=== PATIENT | male | born 1960 | race Caucasian/White ===

== ENCOUNTER 2017-04-17 14:52 | Emergency (ER) | payer OTHER ==
[~2017-04-17] VITALS: Ht 180.3 cm; Wt 86.2 kg
[2017-04-17] MEDS ORDERED: Tetanus/Diptheria/Pertussis Vaccine 0.5ml Syr IM ONE (15:15)
--- NOTE | 2017-04-17 15:50 | Emergency Room Report ---
History of Present Illness General Chief Complaint: Multiple Trauma/Fall Source: Patient, Family Member, EMS Present Illness HPI 57YOM BIBEMS after 5x falls in last 24 hours Did meth, GHB, ?chloroform last night. Also took 2x trazodone with wine and ? other pill to help him sleep Fell in kitchen last night, then went back to bed. Fell at [employer]. Refused EMS. Fell again at home Had profuse vomiting No AMS per Total of 5x falls today per . Takes ASA daily "before working out." Not on other AC. Denies other medical problems. Allergies: Coded Allergies: No Known Allergies (Unverified , 04/17/17) Patient History Past Medical History: none Past Surgical History: none Pertinent Family History: none Social History: Reports: drug use Immunizations: UTD Reviewed Nursing Documentation: PMH: Agreed, PSxH: Agreed Nursing Documentation-PMH Past Medical History: No Stated History Review of Systems All Other Systems: negative except mentioned in HPI Physical Exam Vital Signs Date Time Temp Pulse Resp B/P (MAP) Pulse Ox O2 Delivery O2 Flow Rate FiO2 04/17/17 14:44 70 20 151/83 99 Room Air Sp02 EP Interpretation: reviewed, normal General Appearance: normal inspection, well appearing, no apparent distress, alert Head: other - Nasal bridge abrasion. 2x bruise to right forehead, 1-2cm each Eyes: bilateral eye PERRL, bilateral eye EOMI ENT: normal ENT inspection Neck: normal inspection, full range of motion, supple, no bony tend Respiratory: normal inspection, lungs clear, normal breath sounds, no respiratory distress, no retraction, no wheezing Cardiovascular #1: regular rate, rhythm, no edema Gastrointestinal: normal inspection, normal bowel sounds, non tender, soft, no guarding, no hernia Genitourinary: no CVA tenderness Musculoskeletal: normal inspection, back normal, normal range of motion, Eloise' s Sign negative Neurologic: normal inspection, alert, oriented x3, responsive, 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 nml as tested, motor strength/tone normal, speech normal Psychiatric: normal inspection, judgement/insight normal, mood/affect normal Skin: normal inspection, normal color, no rash Procedures Critical Care Time Critical Care Time 30 minutes for this head trauma patient on ASA with multiple falls Found to have subdural with midline shift No AMS GCS 15 CC time includes d/w radiologist, ordering of meds - keppra, mannitol, hydralazine to lower BP, discussion with Neurosurgery at [facility], arrange of transport to [facility] Medical Decision Making Diagnostic Impression: Primary Impression: Fall Qualified Codes: W19.XXXA - Unspecified fall, initial encounter Additional Impressions: Subdural bleeding Midline shift of brain ER Course 56YOM with left subdural hematoma vs traumatic fall with midline shift, edema Patient's mental status remains stable. A&OX3 Spoke to Dr Aldana at [facility] who accepted patient for transfer to Neuro ICU Rescue transfer initiated Dr Aldana requested mannitol, Keppra and Hydralazine to maintain BP <140 - all were given prior to transfer Patient maintained mental status while in ED Last Vital Signs Date Time Temp Pulse Resp B/P (MAP) Pulse Ox O2 Delivery O2 Flow Rate FiO2 04/17/17 14:44 70 20 151/83 99 Room Air Status: unchanged Disposition: ADMITTED INPATIENT Condition: Critical Referrals: NOT CHOSEN IPA/,REFERRING (PCP) THOMAS CABAN M.D. Apr 17, 2017 15:50
[2017-04-17 16:00] VITALS: BP 158/75
[2017-04-17] MEDS ORDERED: levETIRAcetam 1,000mg/NS100ml 100 ML IVPB ONE (16:00)
[2017-04-17] MEDS ORDERED: Tubing IV Cassette IV ONE (16:00)
[2017-04-17 16:01] VITALS: BP 161/78
[2017-04-17] MEDS ORDERED: MANNITOL 20% IV ONE ×2 (16:15)
[2017-04-17 16:30] VITALS: BP 143/72
[2017-04-17 16:41] VITALS: BP 168/71
== END 2017-04-17 16:28 | disposition other institution (70) ==
LOC: EDBD 14:52 → EMR 15:41
DX: S06.5X0A Traumatic subdural hemorrhage without loss of consciousness, initial encounter (principal); F15.10 Other stimulant abuse, uncomplicated; Z23 Encounter for immunization; W18.30XA Fall on same level, unspecified, initial encounter; Y92.000 Kitchen of unspecified non-institutional (private) residence as the place of occurrence of the external cause
CPT/HCPCS: 70450; 80300; 90471; 90715; 96365; 96375; 99291; J0360; J1953; J2150; 96374